=== PATIENT | female | born 2005 | race Caucasian/White ===

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

== ENCOUNTER 2025-11-11 15:23 | Outpatient (CLI) | payer OTHER | END 2025-11-11 15:30 | disposition home or self-care (01) | LOC: RAD 15:23 | PROVIDERS: ATTEND General Practice | DX: M54.50 Low back pain, unspecified (principal) ==